=== PATIENT | female | born 1995 | race Two or more races ===

== ENCOUNTER 2018-04-07 20:45 | Emergency (ER) | payer OTHER ==
[~2018-04-07] VITALS: Ht 152.4 cm; Wt 62.1 kg
[2018-04-08] MEDS ORDERED: DOLOGESIC 500-1 EACH PO (01:48)
[2018-04-08] MEDS ORDERED: PHENAGIL TABLE1 EACH PO (01:48)
== END 2018-04-08 01:44 | disposition home or self-care (01) ==
LOC: ER 20:45
DX: R53.81 Other malaise (principal)

== ENCOUNTER 2018-04-27 17:21 | Emergency (ER) | payer OTHER ==
[~2018-04-27] VITALS: Ht 152.4 cm; Wt 60.8 kg
[~2018-04-27 17:21] MED LIST: DOLOGESIC 500-1 EACH PO; PHENAGIL TABLE1 EACH PO
== END 2018-04-27 21:43 | disposition home or self-care (01) ==
LOC: ER 17:21
DX: B37.3 Candidiasis of vulva and vagina (principal)

== ENCOUNTER 2018-06-11 17:57 | Emergency (ER) | payer OTHER ==
[~2018-06-11] VITALS: Ht 152.4 cm; Wt 59.0 kg
== END 2018-06-11 23:54 | disposition home or self-care (01) ==
LOC: ER 17:57
DX: J32.0 Chronic maxillary sinusitis (principal)

== ENCOUNTER 2019-05-10 21:42 | Outpatient (CLI) | payer OTHER | END 2019-05-11 19:05 | disposition home or self-care (01) | LOC: OBS/DEL 21:42 | DX: O26.892 Other specified pregnancy related conditions, second trimester (principal); R10.2 Pelvic and perineal pain; O35.8XX0 Maternal care for other (suspected) fetal abnormality and damage, not applicable or unspecified; Z34.82 Encounter for supervision of other normal pregnancy, second trimester ==

== ENCOUNTER 2019-08-12 13:07 | Inpatient (IN) | payer OTHER ==
[~2019-08-12] VITALS: Ht 152.4 cm; Wt 2.7 kg
[2019-08-12] MEDS ORDERED: OBSTETRIX DHA1 EACH PO (14:57)
[2019-08-15] MEDS ORDERED: Tylenol Extra Streng PO (14:33)
[2019-08-15] MEDS ORDERED: IBUPROFEN800 MG PO (14:33)
[2019-08-15] MEDS ORDERED: SIMETHICONE125 M1 PO (14:34)
[2019-08-15] MEDS ORDERED: SENNA8.6 MG PO (14:34)
== END 2019-08-15 14:40 | disposition home or self-care (01) | DRG 786 ==
LOC: LDR 13:07 → OB/GYN 13:07
PROVIDERS: ADMIT Obstetrics & Gynecology
PROC: 4A1HXCZ Monitoring of Products of Conception, Cardiac Rate, External Approach (ICD-10-PCS; 2019-08-12)
PROC: 4A033R1 Measurement of Arterial Saturation, Peripheral, Percutaneous Approach (ICD-10-PCS; 2019-08-12)
PROC: 10D00Z1 Extraction of Products of Conception, Low, Open Approach (ICD-10-PCS; principal; 2019-08-12 14:00)
DX: O82 Encounter for cesarean delivery without indication (principal); O60.14X0 Preterm labor third trimester with preterm delivery third trimester, not applicable or unspecified; O34.211 Maternal care for low transverse scar from previous cesarean delivery; O76 Abnormality in fetal heart rate and rhythm complicating labor and delivery; Z3A.36 36 weeks gestation of pregnancy; Z37.0 Single live birth

== ENCOUNTER 2020-08-29 19:59 | Emergency (ER) | payer OTHER ==
[~2020-08-29] VITALS: Ht 152.4 cm; Wt 54.4 kg
[~2020-08-29 19:59] MED LIST changes: +IBUPROFEN800 MG PO; +OBSTETRIX DHA1 EACH PO; +SENNA8.6 MG PO; +SIMETHICONE125 M1 PO; +Tylenol Extra Streng PO
== END 2020-08-29 23:26 | disposition home or self-care (01) ==
LOC: ER 19:59
DX: O20.8 Other hemorrhage in early pregnancy (principal); Z3A.01 Less than 8 weeks gestation of pregnancy